=== PATIENT | female | born 2000 | race Caucasian/White ===

== ENCOUNTER 2019-04-28 15:53 | Emergency (ER) | payer OTHER ==
[2019-04-28] MEDS ORDERED: Ketorolac INJ* 30 MG/ML 1 ML VIAL IM ONE (16:36)
[2019-04-28] MEDS ORDERED: Cyclobenzaprine TAB* 10 MG PO ONE ×3 (16:37→17:23)
--- NOTE | 2019-04-28 16:43 | ED ---
Back Pain - HPI Summary HPI Summary: This patient is a 18 year old F presenting to [facility] accompanied by acquaintances with a chief complaint of severe back pain since prior to arrival. Pt had been coughing since one week ago, and started having worsening pain w cough. Today while sitting down she sneezed, twisted and pulled a back muscle. Afterwards she was in such severe pain that she could not move 2/2 lower left back pain. Pt has a PMHx of cerebral palsy, and she had to have surgery 10 years ago. She has chronic weakness on R side, and usually has to compensate with L side. Currently, the patient rates the pain 5/10 in severity. Denies numbness or tingling. No recent fevers or productive cough. States her cough is improved. - History of Current Complaint Chief Complaint: EDBackInjuryPain Stated Complaint: BACK PAIN Time Seen by Provider: 04/28/19 16:18 Hx Obtained From: Patient Onset/Duration: Sudden Onset, Lasting Hours, Still Present Onset/Duration: Started Hours Ago Timing: Constant Severity Initially: Moderate Severity Currently: Moderate Pain Intensity: 5 Pain Scale Used: 0-10 Numeric Character: Sharp Aggravating Symptom(s): Movement Alleviating Symptom(s): Nothing Associated Signs And Symptoms: Positive: Flank Pain - Allergies/Home Medications Allergies/Adverse Reactions: Allergies Allergy/AdvReac Type Severity Reaction Status Date / Time diazepam [From Valium] AdvReac Excitabilit Verified 04/28/19 16:30 y PMH/Surg Hx/FS Hx/Imm Hx Sensory History: Denies: Hx Legally Blind Opthamlomology History: Denies: Hx Legally Blind EENT History: Denies: Hx Deafness - Surgical History Surgical History: Yes Surgery Procedure, Year, and Place: Surgery for cerebral palsy Infectious Disease History: No Infectious Disease History: Denies: Traveled Outside the [place] in Last 30 Days - Family History Known Family History: Negative: Hypertension, Diabetes - Social History Occupation: Student Lives: Dormitory/Roommates Alcohol Use: Occasionally Substance Use Type: Reports: None Smoking Status (MU): Never Smoked Tobacco Review of Systems Positive: Cough Positive: Abdominal Pain Positive: Other - back pain All Other Systems Reviewed And Are Negative: Yes Physical Exam - Summary Physical Exam Summary: Constitutional: Well-developed, Well-nourished, Alert. (-) Distressed Skin: Warm, Dry HENT: Normocephalic; Atraumatic Eyes: Conjunctiva normal Neck: Musculoskeletal ROM normal neck. (-) JVD, (-) Stridor, (-) Nuchal rigidity ; Cardio: Rhythm regular, rate normal, Heart sounds normal; Intact distal pulses; Radial pulses are 2+ and symmetric. (-) Murmur Pulmonary/Chest wall: Effort normal. (-) Respiratory distress, (-) Wheezes, (-) Rales Abd: Soft, (-) tenderness, (-) Distension, (-) Guarding, (-) Rebound Musculoskeletal: (-) Edema; paraspinal lumbar tend of L side Lymph: (-) Cervical adenopathy Neuro: Alert, Oriented x3, SILT. chronic R sided weakness, LLE 5/5 strength, ambulates w steady gait, favors R side Psych: Mood and affect Normal Triage Information Reviewed: Yes Vital Signs On Initial Exam: Initial Vitals Temp Pulse Resp BP Pulse Ox 97.5 F 79 16 144/68 100 04/28/19 16:25 04/28/19 16:25 04/28/19 16:25 04/28/19 16:25 04/28/19 16:25 Vital Signs Reviewed: Yes Procedures - Sedation Patient Received Moderate/Deep Sedation with Procedure: No Diagnostics - Vital Signs Vital Signs Temp Pulse Resp BP Pulse Ox 04/28/19 16:25 97.5 F 79 16 144/68 100 - Laboratory Lab Statement: Any lab studies that have been ordered have been reviewed, and results considered in the medical decision making process. Re-Evaluation - Re-Evaluation First Eval Re-Evaluation Time: 17:21 Comment: Discussed plan of care with pt Back Pain Course/Dx - Course Course Of Treatment: 18 y/o F p/w lower back strain. No trauma, no midine tenderness, +TTP L paraspinal tenderness. No new weakness on exam. Given toradol , flexeril, lidocaine patch - Diagnoses Provider Diagnoses: Back strain Discharge ED - Sign-Out/Discharge Documenting (check all that apply): Patient Departure - Discharge - Discharge Plan Condition: Stable Disposition: HOME Patient Education Materials: Low Back Strain (ED) Referrals: [facility] - Keith DELGADO [Z.BUSINESS, APPLICATION, OTHER] - 3 Days Additional Instructions: You were seen in the ER for back pain. Please take motrin 600 mg every 6-8 hours as needed for pain, you can also take flexeril at night for pain. Return for worsening pain, inability to walk, numbness or weakness, bladder or bowel incontinence. It was a pleasure taking care of you today. - Billing Disposition and Condition Condition: STABLE Disposition: Home - Attestation Statements Document Initiated by Yandy: Yes Documenting Scribe: Mei Maier Provider For Whom Yandy is Documenting (Include Credential): Emery Rojas MD Scribe Attestation: Mei Tristan, scribed for Emery Rojas MD on 04/28/19 at 1724. Scribe Documentation Reviewed: Yes Provider Attestation: The documentation as recorded by the Mei dixon accurately reflects the service I personally performed and the decisions made by Emery figueroa MD Status of Scribe Document: Viewed
[2019-04-28] MEDS ORDERED: Lidocaine PATCH 5%* 1 PATCH TRANSDERM SCH ×2 (16:57→17:25)
[2019-04-28 18:30] VITALS: BP 119/66
[2019-04-28] MEDS ORDERED: Lidocaine Patch REMOVE* 1 NOTE MISC SCH (21:00)
[2019-04-28] MEDS ORDERED: Lidocaine Patch REMOVE* 1 NOTE MISC PATCH OFF SCH ×2 (21:00)
[2019-04-29] MEDS ORDERED: Lidocaine PATCH 5%* 1 PATCH TRANSDERM SCH (09:00)
== END 2019-04-28 17:51 | disposition home or self-care (01) ==
LOC: ED 15:53
DX: S39.012A Strain of muscle, fascia and tendon of lower back, initial encounter (principal); X50.1XXA Overexertion from prolonged static or awkward postures, initial encounter; Y93.89 Activity, other specified; Y92.9 Unspecified place or not applicable; Z88.8 Allergy status to other drugs, medicaments and biological substances
CPT/HCPCS: 96372; 99283; A9270-GY; J1885